=== PATIENT | female | born 1955 | race Asian ===

== ENCOUNTER 2016-09-02 19:51 | Emergency (ER) | payer OTHER ==
[~2016-09-02] VITALS: Ht 157.5 cm; Wt 73.0 kg
[~2016-09-02 19:51] MED LIST: CALC0.254 PO; CALC200T3 PO; CHOL100015 PO; CHOL400T2 PO; DIVA250T6 PO; LEVE500T53 PO; LEVO100T PO; LEVO88TA4 PO; LISI5TAB7 PO; LOSA25TA5 PO; MAGN300C PO; PROP10TA PO
[2016-09-02] MEDS ORDERED: SODIUM CHLORIDE FLUSH 10ML SYR IVF ONE (21:00)
[2016-09-02] MEDS ORDERED: CALCIUM GLUCONATE 9.2 MEQ in SODIUM CHLORIDE 0.9% 100 ML IV ONE (21:30)
[2016-09-02] MEDS ORDERED: CALCIUM CARBONATE 500 MG TAB.CHEW PO ONE (21:30)
[2016-09-02 21:52] LABS: ASPARTATE AMINO TRANSFERASE 15 U/L (15-37); BLOOD UREA NITROGEN 12 mg/dL (7-18)
[2016-09-02] MEDS ORDERED: POTASSIUM CHLORIDE 20 MEQ TAB.ER.PRT ONE (22:17)
[2016-09-02] MEDS ORDERED: POTASSIUM CHLORIDE 20 MEQ TAB.ER.PRT PO ONE (22:30)
[2016-09-02 23:24] VITALS: BP 126/82
== END 2016-09-02 23:26 | disposition home or self-care (01) ==
LOC: ED 23:20
DX: E83.51 Hypocalcemia (principal); E87.6 Hypokalemia; E11.9 Type 2 diabetes mellitus without complications; E03.9 Hypothyroidism, unspecified; I10 Essential (primary) hypertension; Z90.49 Acquired absence of other specified parts of digestive tract
CPT/HCPCS: 36415; 80053; 82330; 93005; 96365; 99285; J0610

== ENCOUNTER 2017-05-07 12:35 | Emergency (ER) | payer OTHER ==
[~2017-05-07] VITALS: Ht 172.7 cm; Wt 88.0 kg
[2017-05-07] MEDS ORDERED: SODIUM CHLORIDE FLUSH 10ML SYR IVF ONE (15:30)
[2017-05-07 15:33] LABS: BASOPHILS # (AUTO) 0.05 x10^3/uL (0-0.1); BASOPHILS % (AUTO) 1 % (0-1); EOSINOPHILS # (AUTO) 0.24 x10^3/uL (0-0.4); EOSINOPHILS % (AUTO) 4 % (1-7); LYMPHOCYTES # (AUTO) 2.14 x10^3/uL (1-3.4); LYMPHOCYTES % (AUTO) 36 % (22-44); MD NO; MEAN CORPUSCULAR HEMOGLOBIN 28.4 pg (27.0-34.8); MEAN CORPUSCULAR HGB CONC 33.1 g/dL (32.4-35.8); MEAN CORPUSCULAR VOLUME 85.8 fL (80-100); MEAN PLATELET VOLUME 7.8 fL (7.4-10.4); MONOCYTES # (AUTO) 0.45 x10^3/uL (0.2-0.8); MONOCYTES % (AUTO) 8 % (2-9); NEUTROPHILS # (AUTO) 3.12 x10^3/uL (1.8-6.8); NEUTROPHILS % (AUTO) 52 % (42-75); PLATELET COUNT 343 x10^3/uL (130-400); RED BLOOD COUNT 4.53 x10^6/uL (3.82-5.3); RED CELL DISTRIBUTION WIDTH 15.1 % (9.6-15.2)
[2017-05-07 15:41] LABS: ALANINE AMINOTRANSFERASE 19 U/L (12-78); ALBUMIN 3.7 g/dL (3.4-5.0); ANION GAP 5 mmol/L (5-15); CALCIUM 7.2 mg/dL (8.5-10.1); CHLORIDE 108 mmol/L (98-107)
[2017-05-07 15:44] LABS: ALKALINE PHOSPHATASE 50 U/L (45-117); BILIRUBIN,TOTAL 0.4 mg/dL (0.2-1.0); CREATININE 1.03 mg/dL (0.55-1.02); TOTAL PROTEIN 8.2 g/dL (6.4-8.2)
[2017-05-07] MEDS ORDERED: CALCIUM CHLORIDE 13.6 MEQ in SODIUM CHLORIDE 0.9% 100 ML IV ONE (16:00)
[2017-05-07 16:17] LABS: CULTURE INDICATED? YES; MICROSCOPIC AUTO
[2017-05-07 16:25] VITALS: BP 138/75
== END 2017-05-07 18:13 | disposition home or self-care (01) ==
LOC: ED 16:00
DX: E83.51 Hypocalcemia (principal); E03.9 Hypothyroidism, unspecified; E11.9 Type 2 diabetes mellitus without complications; I10 Essential (primary) hypertension; Z90.49 Acquired absence of other specified parts of digestive tract
CPT/HCPCS: 36415; 80053; 81001; 82330; 85025; 87086; 96365

== ENCOUNTER 2018-08-30 18:53 | Emergency (ER) | payer OTHER ==
[~2018-08-30] VITALS: Ht 157.5 cm; Wt 68.9 kg
[~2018-08-30 18:53] MED LIST changes: +DIVA-59 PO; -DIVA250T6 PO; +LOSA25TA25 PO; -LOSA25TA5 PO; -PROP10TA PO; +PROP10TA16 PO
--- NOTE | 2018-08-30 20:05 | NUR ---
ASSUMED CARE OF P FROM THE LOBBY. PT C/O STUART SINCE LAST OC WITH HX OF HTN/MIGRAINES. 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 CHART UP FOR .
[2018-08-30] MEDS ORDERED: KETOROLAC 30 MG/1 ML ONE (20:23)
[2018-08-30] MEDS ORDERED: DIPHENHYDRAMINE 50 MG/ML, 1ML ONE (20:23)
[2018-08-30] MEDS ORDERED: PROCHLORPERAZINE 5 MG/ML, 2ML ONE (20:23)
[2018-08-30] MEDS ORDERED: SODIUM CHLORIDE FLUSH 10ML SYR IVF ONE (20:30)
[2018-08-30] MEDS ORDERED: KETOROLAC 30 MG/1 ML IVPush ONE (20:30)
[2018-08-30] MEDS ORDERED: DIPHENHYDRAMINE 50 MG/ML, 1ML IVPush ONE (20:30)
[2018-08-30] MEDS ORDERED: PROCHLORPERAZINE 5 MG/ML, 2ML IVPush ONE (20:30)
--- NOTE | 2018-08-30 21:01 | NUR ---
REPORT TO EFRAIN LAO. PT SLEEPING IN NAD. BP DOWN TO 134/72.
[2018-08-30 21:14] VITALS: BP 132/70
[2018-08-31] MEDS ORDERED: METF500T17 PO (21:12)
== END 2018-08-30 21:20 | disposition home or self-care (01) ==
LOC: ED 21:15
DX: G43.C0 Periodic headache syndromes in child or adult, not intractable (principal); E11.9 Type 2 diabetes mellitus without complications; I10 Essential (primary) hypertension; E03.9 Hypothyroidism, unspecified; G43.909 Migraine, unspecified, not intractable, without status migrainosus; Z90.49 Acquired absence of other specified parts of digestive tract
CPT/HCPCS: 96374; 96375; 99283; J0780; J1200; J1885

== ENCOUNTER 2018-08-31 18:56 | Emergency (ER) | payer OTHER ==
[~2018-08-31] VITALS: Ht 157.5 cm; Wt 68.8 kg
[2018-08-31] MEDS ORDERED: MORPHINE SULFATE 4 MG/ML, 1ML ONE (19:50)
[2018-08-31] MEDS ORDERED: NITROGLYCERIN OINT 2%, 1GM TP ONE ×2 (19:50→20:00)
[2018-08-31] MEDS ORDERED: PROCHLORPERAZINE 5 MG/ML, 2ML ONE (19:51)
[2018-08-31] MEDS ORDERED: LABETALOL 5MG/ML, 20ML ONE (19:51)
[2018-08-31] MEDS ORDERED: SODIUM CHLORIDE FLUSH 10ML SYR IVF ONE (20:00)
[2018-08-31] MEDS ORDERED: PROCHLORPERAZINE 5 MG/ML, 2ML IVPush ONE (20:00)
[2018-08-31] MEDS ORDERED: MORPHINE SULFATE 4 MG/ML, 1ML IVPush PRN (20:00)
[2018-08-31] MEDS ORDERED: LABETALOL 5MG/ML, 20ML IVPush ONE (20:00)
[2018-08-31 20:15] LABS: BASOPHILS # (AUTO) 0.02 x10^3/uL (0-0.1); BASOPHILS % (AUTO) 0 % (0-1); EOSINOPHILS # (AUTO) 0.27 x10^3/uL (0-0.4); EOSINOPHILS % (AUTO) 4 % (1-7); LYMPHOCYTES # (AUTO) 2.46 x10^3/uL (1-3.4); LYMPHOCYTES % (AUTO) 34 % (22-44); MD NO; MEAN CORPUSCULAR HEMOGLOBIN 29.3 pg (27.0-34.8); MEAN CORPUSCULAR VOLUME 88.6 fL (80-100); MEAN PLATELET VOLUME 7.5 fL (7.4-10.4); MONOCYTES # (AUTO) 0.46 x10^3/uL (0.2-0.8); MONOCYTES % (AUTO) 6 % (2-9); NEUTROPHILS # (AUTO) 4.14 x10^3/uL (1.8-6.8); NEUTROPHILS % (AUTO) 56 % (42-75); PLATELET COUNT 374 x10^3/uL (130-400); RED BLOOD COUNT 4.26 x10^6/uL (3.82-5.3); RED CELL DISTRIBUTION WIDTH 14.5 % (9.6-15.2)
--- NOTE | 2018-08-31 20:20 | NUR ---
MRI SCREENING DONE, PT GOING TO MRI AT THIS TIME.
[2018-08-31 20:21] LABS: ALBUMIN 3.6 g/dL (3.4-5.0); ANION GAP 10 mmol/L (5-15); CALCIUM 7.7 mg/dL (8.5-10.1); CHLORIDE 107 mmol/L (98-107); CREATININE 0.96 mg/dL (0.55-1.02)
[2018-08-31] MEDS ORDERED: METF500T17 PO (21:12)
--- NOTE | 2018-08-31 21:13 | NUR ---
IV STARTED, PT MEDICATED PER EMAR. PT C/O STUART SHORTLY AFTER NTG PASTE APPLIED. NTG REMOVED PER PT REQUEST, ERP AWARE. FAMILY AT BEDSIDE. PT ON CARDIAC AND VITALS MONITORS AT THIS TIME. BILAT BEDRAILS UP.
[2018-08-31 21:48] VITALS: BP 169/94
== END 2018-08-31 21:50 | disposition home or self-care (01) ==
LOC: ED 21:16
DX: G51.0 Bell's palsy (principal); I10 Essential (primary) hypertension; G43.909 Migraine, unspecified, not intractable, without status migrainosus; E03.9 Hypothyroidism, unspecified; E11.9 Type 2 diabetes mellitus without complications; Z90.49 Acquired absence of other specified parts of digestive tract
CPT/HCPCS: 36415; 70551; 80048; 82040; 85025; 93005; 96374; 96375; 99284; J0780; J2270